=== PATIENT | female | born 1980 | race Caucasian/White ===

== ENCOUNTER 2023-07-07 19:24 | Emergency (ER) | payer MEDICAID, SELFPAY ==
[2023-07-07 19:25] VITALS: BP 179/101; PULSE 114; RESP 20; TEMP 36.8; O2SAT 99; BMI 43.5
--- NOTE | 2023-07-07 19:39 | CT_ITS ---
PROCEDURE INFORMATION: Exam: CT Abdomen And Pelvis Without Contrast Exam date and time: 07/07/2023 7:59 PM Age: 43 years old Clinical indication: Abdominal pain; Flank; Right; Additional info: Right flank rlq sudden pain TECHNIQUE: Imaging protocol: Computed tomography of the abdomen and pelvis without contrast. Radiation optimization: All CT scans at this facility use at least one of these dose optimization techniques: automated exposure control; mA and/or kV adjustment per patient size (includes targeted exams where dose is matched to clinical indication); or iterative reconstruction. REPORTING DATA: Count of CT and Cardiac NM exams in prior 12 months: This patient has received 0 known CTs and 0 known cardiac nuclear medicine studies in the 12 months prior to the current study. COMPARISON: No relevant prior studies available. FINDINGS: Liver: Normal. No mass. Gallbladder and bile ducts: Normal. No calcified stones. No ductal dilation. Pancreas: The pancreas is of normal size and morphology, without evidence of masses, cysts, or calcifications. The pancreatic duct is not dilated. Spleen: There is a small splenule. Adrenal glands: The adrenal glands appear normal. Kidneys and ureters: There is mild right hydroureteronephrosis with right-sided perinephric stranding, no focal obstructing calculus is seen. Correlate for recently passed stone versus ureteritis. Stomach and bowel: The patient is status post sleeve gastrectomy. There is large volume stool throughout the colon. Appendix: No evidence of appendicitis. Intraperitoneal space: Unremarkable. No free air. No significant fluid collection. Vasculature: There is atherosclerotic disease of the visualized aorta and its major branch vessels. Lymph nodes: There are mildly prominent but nonenlarged and nonspecific retroperitoneal nodes. Urinary bladder: Unremarkable as visualized. Reproductive: The patient has undergone prior hysterectomy. Bones/joints: Nonspecific lower thoracic wedge deformities without compression injury identified. There is diffuse degenerative disease of the visualized osseous structures. Soft tissues: Unremarkable. IMPRESSION: There is mild right hydroureteronephrosis with right-sided periureteric stranding, no focal obstructing calculus is seen. Correlate for recently passed stone versus ureteritis.
--- NOTE | 2023-07-07 19:42 | [facility].EDGENADL ---
Discharge Plan Disposition Patient Disposition: Home, Self-Care Prescriptions Prescriptions: New ondansetron 4 mg tablet,disintegrating 4 mg PO Q6H PRN (Reason: nausea and vomiting) 5 Days Qty: 20 0RF cefdinir 300 mg capsule 300 mg PO BID 10 Days Qty: 20 0RF Referrals Follow up/Referrals: Alexandra Gibson PA [Primary Care Provider] - See instructions Activity Restrictions/Add. Instructions Additional Instructions/Restrictions: Your symptoms and CAT scan are consistent with a recently passed kidney stone but urinalysis shows urinary tract infection and in the setting of flank pain we will treat this for a kidney infection otherwise known as pyelonephritis. He also had a significant amount of stool in the right lower quadrant and may be contributing to your symptoms I would recommend you take MiraLAX and escalate daily until you are having soft bowel movements daily. Clinical Impressions Clinical Impression: Pyelonephritis, Right kidney stone Instructions Patient Instructions: DI for Acute Abdominal Pain Discharge ED Provider: Rubio Genao General Adult HPI General Chief complaint: Abdominal Pain Stated complaint: abd pain Time Seen by Provider: 07/07/23 19:35 History of Present Illness HPI narrative: Patient is a 43-year-old female presenting today with sudden right lower quadrant abdominal pain and right flank pain. States that it has been constant but fluctuating in intensity since last several hours. Had no symptoms just a few hours ago prior to this happening. No history of any kidney stones no hematuria no history of ovarian cyst she actually has had a total hysterectomy including oophorectomy's. No urinary symptoms no history of any bowel problems that she is aware of. Related Data Previous Rx's Medication Instructions Recorded cefdinir 300 mg capsule 300 mg PO BID 10 days #20 caps 07/07/23 ondansetron 4 mg disintegrating 4 mg PO Q6H PRN nausea and 07/07/23 tablet vomiting 5 days #20 tabs Allergies Allergy/AdvReac Type Severity Reaction Status Date / Time aspirin Allergy Verified 07/07/23 19:48 Penicillins Allergy Verified 07/07/23 19:48 Sulfa (Sulfonamide Allergy Verified 07/07/23 19:48 Antibiotics) [facility] Disclaimer: The information contained in this section may have been updated after the patient was seen, as this information can be updated by other users. Social History Smoking Status: Never smoker alcohol intake: never current occupational status: other Travel in the last 8 weeks: None ROS Obtained: Yes All systems reviewed & no additional complaints except as documented Physical Exam General General appearance: in distress (Crying in pain) Respiratory Respiratory exam: Present normal lung sounds bilaterally Cardiovascular Cardiovascular exam: Present regular rate; Absent tachycardia Abdominal Exam Abdominal exam: Present soft and tenderness (Right lower quadrant tenderness palpation there is no CVA tenderness however she describes right flank pain subjectively no rebound or guarding or any rigidity) Neurological Exam Neurological exam: Present alert and oriented X3 Medical Decision Making Ermias Inquiry Pt receiving controlled substance: No Vital Signs: 07/07/23 19:25 Temperature 98.3 F Temperature Source Oral Pulse Rate [Radial] 114 H Respiratory Rate 20 Blood Pressure [Left Arm] 179/101 H Blood Pressure Mean [Left Arm] 127 Blood Pressure Source [Left Arm] Automatic Cuff 02 Sat by Pulse Oximetry 99 Oxygen Delivery Method Room Air Lab Data Lab results reviewed: Yes I reviewed the patient's lab results. Lab Results 07/07/23 19:25: Urine Color Yellow, Urine Appearance Cloudy, Urine pH 6.0, Ur Specific [place] >= 1.030, Urine Protein 1+, Urine Glucose (UA) Negative, Urine Ketones Negative, Urine Blood 2+, Urine Nitrate Positive, Urine Bilirubin Negative, Urine Urobilinogen 0.2, Ur Leukocyte Esterase 2+ A, Urine RBC
[2023-07-07 19:49] VITALS: BMI 43.5
[2023-07-07 19:53] LABS: Microscopic, Urine URINE MICROSCOPIC (MICROSCOPIC)
[2023-07-07 19:56] LABS: Appearance,Urine CLOUDY (Clear); Bilirubin,Urine Negative (Negative); Blood, Urine 2+ (Negative); Color,Urine YELLOW (Yellow); Glucose,Urine (UA) Negative (Negative); Ketones,Urine Negative (Negative); Leukocyte Esterase,Urine 2+ (Negative); Nitrate,Urine POSITIVE (Negative); Protein,Urine 1+ (Negative); Specific Gravity, Urine >= 1.030 (1.005-1.030); Urobilinogen,Urine 0.2 EU/dl (0.2)
[2023-07-07 20:05] LABS: Basophils % 0.3 % (0.1-2.0); Chloride 103 mmol/L (98-107); Eosinophils # 0.1 K/mm3 (0.0-0.4); Hematocrit 43.4 % (37.0-47.0); Hemoglobin 14.5 g/dL (12.2-16.2); Lymphocytes # 3.1 K/mm3 (0.7-4.5); Lymphocytes % 22.8 % (10-50); Mean Corpuscular HGB Conc 33.4 g/dL (31.8-35.4); Mean Corpuscular Hemoglobin 26.9 pg (27.0-31.2); Mean Corpuscular Volume 80.4 fl (81-99); Mean Platelet Volume 7.7 fl (7.4-10.4); Monocytes # 0.6 K/mm3 (0.1-1.0); Monocytes % 4.4 % (1.7-9.3); Neutrophils # 9.8 K/mm3 (1.8-7.8); Neutrophils % 71.4 % (37.0-80.0); Platelet Count 269 K/mm3 (142-424); Potassium 4.2 mmoL/L (3.5-5.1); Red Blood Count 5.39 M/mm3 (4.20-5.40); Red Cell Distribution Width 13.8 % (11.5-17.5); Sodium 139 mmol/L (136-145); White Blood Count 13.7 K/mm3 (4.8-10.8)
[2023-07-07 20:08] LABS: Alanine Aminotransferase 23 U/L (12-78); Albumin Level 4.8 g/dl (3.5-5.0); Albumin/Globulin Ratio 1.2 (1.1-1.8); Alkaline Phosphatase 78 U/L (38-126); Anion Gap 12.2 mEq/L (5-15); Aspartate Amino Transferase 24 U/L (14-36); Bilirubin,Total 0.5 mg/dl (0.2-1.3); Blood Urea Nitrogen 17 mg/dl (7-17); Carbon Dioxide 28 mmol/L (22.0-30.0); Creatinine Clearance Estimated 85 mL/min (50-200); Estimated Glomerular Filt Rate 78 ml/min (>60); GFR (African American) 95 ML/MIN (>60); Globulin 4.1 g/dL (1.3-3.2); Total Protein,Serum 8.9 g/dl (6.3-8.2)
[2023-07-07 20:09] LABS: Calcium 9.1 mg/dl (8.4-10.2); Glucose 159 mg/dl (74-100)
[2023-07-07 20:11] LABS: Bacteria,Urine 2+ /lpf; WBC,Urine 20-50 #/hpf (0-3); Yeast,Urine Occasional /lpf
[2023-07-07 21:04] VITALS: BP 137/79; PULSE 78; RESP 14; TEMP 36.8; O2SAT 100
--- NOTE | 2023-07-12 11:54 | PC.NURSE ---
urine culture results show Escherichia coli abnormal, contacted pt, and mother number that is listed in chart, all numbers are forward with no voicemail available. Reached out to pt primary care doctor at [facility] with phone number of [phone], talked with nurse jt Fountain, faxed number is [phone] to fax results, was informed by office that results were already received by our hospital and pt had already been in to repeat urine sample and pt pcp aware. Dr. Genao aware
== END 2023-07-07 21:11 | disposition home or self-care (01) ==
PROVIDERS: Emergency Provider Student in an Organized Health Care Education/Training Program; PCP Physician Assistant Medical
DX: N10 Acute pyelonephritis (principal); R10.31 Right lower quadrant pain; B96.29 Other Escherichia coli [E. coli] as the cause of diseases classified elsewhere; N13.39 Other hydronephrosis; N13.4 Hydroureter
CPT/HCPCS: 74176; 80053; 81001; 85025; 87086; 96361; 96374; 96375; 99285; J2405